=== PATIENT | male | born 1965 | race Asian ===

== ENCOUNTER 2021-11-13 14:02 | Emergency (ER) | payer SELFPAY ==
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
--- NOTE | 2021-11-13 15:41 | XRay Report ---
CHEST 1 VIEW 11/13/2021 3:01 PM INDICATION / CLINICAL INFORMATION: Pulled out right chest Vas-Cath. COMPARISON: None available. FINDINGS: SUPPORT DEVICES: None. HEART / MEDIASTINUM: Heart is mildly enlarged. Median sternotomy wires are present. LUNGS / PLEURA: Slight volume loss of the left hemithorax with left basilar pleural-parenchymal densi ty. Right lung is clear. No pneumothorax. ADDITIONAL FINDINGS: No significant additional findings. IMPRESSION: 1. No pneumothorax. 2. Postoperative findings with left basilar pleural-parenchymal density which may be chronic. Signer Name: Luis Stevens MD Signed: 11/13/2021 3:37 PM Workstation Name: [id number]
[2021-11-13 15:44] LABS: Basophils # (Auto) 0.1 K/mm3 (0.0-0.1); Eosinophils # (Auto) 0.6 K/mm3 (0.0-0.4); Eosinophils % (Auto) 8.9 % (0.0-4.3); Hematocrit 35.2 % (35.5-45.6); Hemoglobin 11.8 gm/dl (11.8-15.2); Lymphocytes # (Auto) 0.7 K/mm3 (1.2-5.4); Lymphocytes % (Auto) 10.3 % (13.4-35.0); Mean Corpuscular HGB Conc 34 % (32-34); Mean Corpuscular Volume 96 fl (84-94); Monocytes # (Auto) 0.5 K/mm3 (0.0-0.8); Monocytes % (Auto) 7.5 % (0.0-7.3); Platelet Count 175 K/mm3 (140-440); Red Blood Count 3.65 M/mm3 (3.65-5.03); Red Cell Distribution Width 14.7 % (13.2-15.2)
[2021-11-13 15:56] LABS: INR 0.93 (0.87-1.13)
[2021-11-13 15:57] LABS: Partial Thromboplastin Time 33.5 Sec. (24.2-36.6)
[2021-11-13 16:04] LABS: Calcium 9.3 mg/dL (8.4-10.2)
[2021-11-13 18:15] VITALS: BP 179/80
== END 2021-11-13 16:45 | disposition home or self-care (01) ==
LOC: ED 14:02
DX: T82.49XA Other complication of vascular dialysis catheter, initial encounter (principal); I10 Essential (primary) hypertension; N28.9 Disorder of kidney and ureter, unspecified; M19.90 Unspecified osteoarthritis, unspecified site; X58.XXXA Exposure to other specified factors, initial encounter
CPT/HCPCS: 36415; 71045; 80048; 85025; 85610; 85730; 99284